=== PATIENT | female | born 1990 ===

== ENCOUNTER → 2017-07-06 | Emergency (ER) | payer OTHER ==
[~2017-07-06] VITALS: Ht 167.6 cm; Wt 120.2 kg
[~2017-07-06] MED LIST: FOLIC ACID1 MG; MASOPHEN500 MG PO; PRENATAL GUMMI1 EACH; ROCEPHIN1 G/VIAL IM; ZITHROMAX500 MG PO
== END | disposition home or self-care (01) ==
LOC: ER 11:04
DX: B34.9 Viral infection, unspecified (principal)

== ENCOUNTER 2017-11-07 07:00 | Inpatient (IN) | payer OTHER ==
[~2017-11-07] VITALS: Ht 167.6 cm; Wt 127.0 kg
[2017-11-09] MEDS ORDERED: MIRALAX17 GM PO (09:49)
[2017-11-09] MEDS ORDERED: OXYC1TAB9 PO (09:49)
== END 2017-11-09 12:58 | DRG 765 ==
LOC: O/R 07:00 → OB/GYN 09:25
PROVIDERS: Obstetrics & Gynecology
PROC: 10907ZC Drainage of Amniotic Fluid, Therapeutic from Products of Conception, Via Natural or Artificial Opening (ICD-10-PCS; 2017-11-07)
PROC: 4A033R1 Measurement of Arterial Saturation, Peripheral, Percutaneous Approach (ICD-10-PCS; 2017-11-07)
PROC: 4A1HXCZ Monitoring of Products of Conception, Cardiac Rate, External Approach (ICD-10-PCS; 2017-11-07)
PROC: 10D00Z1 Extraction of Products of Conception, Low, Open Approach (ICD-10-PCS; principal; 2017-11-07 10:00)
DX: O99.824 Streptococcus B carrier state complicating childbirth (principal); O98.52 Other viral diseases complicating childbirth; B00.89 Other herpesviral infection; Z3A.39 39 weeks gestation of pregnancy; Z37.0 Single live birth